=== PATIENT | male | born 1940 | race Caucasian/White ===

== ENCOUNTER → 2020-10-06 | Outpatient (CLI) | payer MEDICARE | END | disposition home or self-care (01) | LOC: RAD 10:31 | PROVIDERS: ATTEND Family Medicine | DX: R91.8 Other nonspecific abnormal finding of lung field (principal); J90 Pleural effusion, not elsewhere classified; J98.4 Other disorders of lung; R05 Cough | CPT/HCPCS: 71046 ==

== ENCOUNTER → 2020-10-07 | Outpatient (CLI) | payer MEDICARE | END | disposition home or self-care (01) | LOC: CFH 13:14 | PROVIDERS: ATTEND Family Medicine | DX: J92.9 Pleural plaque without asbestos (principal); J90 Pleural effusion, not elsewhere classified; J94.8 Other specified pleural conditions; R05 Cough; J98.11 Atelectasis | CPT/HCPCS: 71250 ==

== ENCOUNTER 2020-10-27 14:02 | Outpatient (CLI) | payer MEDICARE ==
[2020-10-27] MEDS ORDERED: LIDOCAINE 1%, 10ML ONE (14:39)
== END 2020-10-27 23:59 | disposition home or self-care (01) ==
LOC: RAD 14:02
PROVIDERS: ATTEND Internal Medicine
DX: J90 Pleural effusion, not elsewhere classified (principal); R91.8 Other nonspecific abnormal finding of lung field; Z79.899 Other long term (current) drug therapy; I10 Essential (primary) hypertension; Z87.891 Personal history of nicotine dependence
CPT/HCPCS: 32555; 88112; 88305; 88341; 88342

== ENCOUNTER 2020-11-02 05:53 | Day surgery (SDC) | payer MEDICARE ==
[~2020-11-02] VITALS: Ht 188 cm; Wt 103.0 kg
[2020-11-02 06:54] VITALS: BP 129/85
[2020-11-02] MEDS ORDERED: SODIUM CHLORIDE 0.9% 1,000 ML IV SCH ×2 (07:00→07:30)
[2020-11-02] MEDS ORDERED: DUTA0.5C PO (07:19)
[2020-11-02] MEDS ORDERED: DOXA1TAB2 PO (07:19)
[2020-11-02] MEDS ORDERED: ATOR10TA9 PO (07:19)
[2020-11-02] MEDS ORDERED: ASPI-1026 PO (07:19)
[2020-11-02] MEDS ORDERED: LISI1TAB23 PO (07:19)
[2020-11-02] MEDS ORDERED: FENTANYL PF 100 MCG/2ML ONE ×2 (08:10)
[2020-11-02] MEDS ORDERED: MIDAZOLAM 1 MG/ML, 5ML ONE (08:10)
[2020-11-02] MEDS ORDERED: FLUMAZENIL 0.1 MG/1 ML, 5ML ONE (08:10)
[2020-11-02] MEDS ORDERED: NALOXONE 1 MG/ML, 2ML ONE (08:11)
== END 2020-11-02 11:40 | disposition home or self-care (01) ==
LOC: OUT 05:53
PROVIDERS: ATTEND Internal Medicine
DX: R91.8 Other nonspecific abnormal finding of lung field (principal); C34.12 Malignant neoplasm of upper lobe, left bronchus or lung; I10 Essential (primary) hypertension; Z79.899 Other long term (current) drug therapy; Z87.891 Personal history of nicotine dependence
CPT/HCPCS: 32408; 71045; 88305; 99156; J2250; J3010; J7030; 77012; J2310

== ENCOUNTER → 2020-12-05 | Outpatient (CLI) | payer MEDICARE ==
[~2020-12-05] MED LIST: ASPI-1026 PO; ATOR10TA9 PO; DOXA1TAB2 PO; DUTA0.5C PO; LIDOCAINE 1%, 10ML ONE; LISI1TAB23 PO
== END | disposition home or self-care (01) ==
LOC: RAD 09:22
PROVIDERS: ATTEND Internal Medicine Hematology & Oncology
DX: J90 Pleural effusion, not elsewhere classified (principal); C34.12 Malignant neoplasm of upper lobe, left bronchus or lung
CPT/HCPCS: 32555

== ENCOUNTER 2020-12-22 11:26 | Outpatient (CLI) | payer MEDICARE ==
[~2020-12-22 11:26] MED LIST changes: -LIDOCAINE 1%, 10ML ONE
[2020-12-22] MEDS ORDERED: LIDOCAINE 1%, 10ML ONE ×2 (11:45→13:04)
== END 2020-12-22 23:59 | disposition home or self-care (01) ==
LOC: RAD 11:26
PROVIDERS: ATTEND Internal Medicine Hematology & Oncology
DX: C34.12 Malignant neoplasm of upper lobe, left bronchus or lung (principal)
CPT/HCPCS: 32555; 71045

== ENCOUNTER 2021-02-02 12:32 | Outpatient (CLI) | payer MEDICARE ==
[~2021-02-02 12:32] MED LIST changes: +AMOX500T PO; +DOXY100C2 PO; +POLY17PO5 PO; +QUET25TA7 PO; +SENN-211 PO
[2021-02-02] MEDS ORDERED: LIDOCAINE 1%, 10ML ONE (12:42)
== END 2021-02-02 23:59 | disposition home or self-care (01) ==
LOC: RAD 12:32
PROVIDERS: ATTEND Internal Medicine
DX: J90 Pleural effusion, not elsewhere classified (principal)
CPT/HCPCS: 32555